=== PATIENT | female | born 1970 | race Asian ===

== ENCOUNTER → 2023-06-25 11:13 | Outpatient (REF) | payer OTHER, SELFPAY | LOC: WDC 11:13 | PROVIDERS: ATTENDING PHYSICIAN Family Medicine | DX: Z12.31 Encounter for screening mammogram for malignant neoplasm of breast (principal) | CPT/HCPCS: 77063; 77067 ==

== ENCOUNTER → 2024-10-02 13:55 | Outpatient (REF) | payer OTHER, SELFPAY | LOC: WDC 13:55 | PROVIDERS: ATTENDING PHYSICIAN Internal Medicine | DX: Z12.31 Encounter for screening mammogram for malignant neoplasm of breast (principal) | CPT/HCPCS: 77063; 77067 ==